=== PATIENT | female | born 1995 | race Hispanic/Latino ===

== ENCOUNTER 2020-04-12 08:10 | Observation (INO) | payer OTHER, SELFPAY ==
[2020-04-12] MEDS ORDERED: Tranexamic Acid 1,000 MG/10 ML VIAL ONE (08:43)
[2020-04-12] MEDS ORDERED: Ondansetron PF 4 MG/2 ML Vial ONE (08:43)
[2020-04-12] MEDS ORDERED: Lorazepam 2 MG/ML VIAL ONE (08:44)
[2020-04-12 09:11] LABS: #Basophils 0.1 thou/uL (0.0-0.2); #Eosinphils 0.2 thou/uL (0.0-0.7); #Monocytes 1.1 thou/uL (0.11-0.59); #Neutrophils 7.8 thou/uL (1.40-6.50); %Basophils 0.5 % (0.0-1.0); %Eosinophils 1.3 % (0.0-10.0); %Lymphocytes 24.5 % (21.0-51.0); %Monocytes 9.2 % (0.0-10.0); %Neutrophils 64.5 % (42.0-75.0); Hemoglobin 13.3 g/dL (12.0-16.0); Mean Corpuscular HGB CONC 34.7 g/dL (32.0-36.0); Mean Corpuscular Hemoglobin 31.6 pg (27.0-31.0); Mean Corpuscular Volume 91.3 fL (78.0-98.0); Mean Platelet Volume 7.3 fL (7.4-10.4); Platelet Count 349 thou/uL (130-400); RBC Distribution Width 11.6 % (11.5-14.5); Red Blood Cell (RBC) Count 4.22 mill/uL (4.20-5.40); White Blood Cell (WBC) Count 12.1 thou/uL (4.8-10.8)
[2020-04-12 09:18] LABS: PTT 26.8 sec (22.9-36.1); Prothrombin Time 12.9 sec (12.0-14.7)
[2020-04-12 09:38] LABS: ALT (SGPT) 57 U/L (8-55); AST (SGOT) 29 U/L (5-34); Albumin 4.3 g/dL (3.5-5.0); Alkaline Phosphatase 96 U/L (40-110); Anion Gap 17 mmol/L (10-20); BUN (Urea Nitrogen) 8 mg/dL (7.0-18.7); Bilirubin, Total 0.4 mg/dL (0.2-1.2); Calc. Creatinine Clearance 0 mL/min (70-130); Calcium 8.6 mg/dL (7.8-10.44); Carbon Dioxide 22 mmol/L (22-29); Chloride 100 mmol/L (98-107); Globulin 3.1 g/dL (2.4-3.5); Glucose 329 mg/dL (70-105); Potassium 4.1 mmol/L (3.5-5.1); Protein, Total 7.4 g/dL (6.0-8.3); Sodium 135 mmol/L (136-145)
[2020-04-12 09:39] LABS: BHCG - Serum Negative (NEGATIVE); Pregs Control Background? CLEAR/WHITE (CLR/WHITE); Pregs Control Bar Appear? YES (CONTROL BAR)
[2020-04-12 10:52] LABS: Acetaminophen Less than 6.0 mcg/mL (10.0-30.0); Alcohol 22 mg/dL (Less than 10); Salicylate Less than 8.0 mg/dL (15.0-30.0)
--- NOTE | 2020-04-12 10:54 | RAD ---
PORTABLE CHEST: HISTORY: Syncopal episode. COMPARISON: 10/07/2015 study. FINDINGS: Heart size and mediastinum are within normal limits. The film is of less than optimal inspiration. Slight increased markings in the bases, probably just on the basis of inspiration. No focal infiltra tive process seen. IMPRESSION: No active intrathoracic disease. POS: SUSAN
[2020-04-12 11:13] LABS: Amphetamine Not Detected (NotDetected); Barbiturates Screen Not Detected (NotDetected); Benzodiazepine Screen Not Detected (NotDetected); Cocaine Metabolite Screen Not Detected (NotDetected); Medtox Reader # READER 4; Methadone Not Detected (NotDetected); Methamphetamine Not Detected (NotDetected); Opiate Screen Not Detected (NotDetected); Oxycodone Screen Not Detected (NotDetected); Phencyclidine (PCP) Not Detected (NotDetected); THC/Cannabinoid Screen Not Detected (NotDetected); Tricyclic Screen Not Detected (NotDetected)
[2020-04-12 11:14] LABS: Medtox Control Line Valid? VALID (VALID)
[2020-04-12] MEDS ORDERED: Ondansetron ODT 4 MG TAB PO PRN (12:16)
[2020-04-12] MEDS ORDERED: Acetaminophen 325 MG TAB PO PRN (12:16)
[2020-04-12] MEDS ORDERED: Dextrose 50% Abboject 50 ML SYRINGE SLOW IVP PRN (12:24)
[2020-04-12] MEDS ORDERED: HumaLOG 300 UNITS/3 ML VIAL SC PRN (12:24)
[2020-04-12] MEDS ORDERED: Dextrose 5% in Water 1,000 ML IV PRN (12:24)
[2020-04-12] MEDS ORDERED: hydrALAZINE 20 MG/ML VIAL SLOW IVP PRN (12:32)
[2020-04-12] MEDS ORDERED: Lorazepam 2 MG/ML VIAL SLOW IVP PRN (12:32)
--- NOTE | 2020-04-12 12:55 | PDOC.HHP ---
Hospitalist HPI Nose bleed History of Present Illness: Patient is 25 year-old female with PMH of DM type I who presents to the ED with nosebleed. Patient sates she started having right-sided nosebleed starting this morning around 6:00AM. She reports hx of recurrent nosebleed, which stops with applying pressure but this time pressure or packing with papertowel did not help. Patient says she was admitted to the hospital when she was ~5-6 year-old when she was in [place], no other hospitalization for nosebleed. She says she was crying due to vaginal pain from Herpes when her nose bleed starts. She was treated for genital Herpes in Jan, 2020 and her symptoms are similar this time. ED Course: In the ED, initial vitals showed hypertension with BP: 174/125 and HR in the 140's-150's. Clot was removed from right nare by ED provider, which resulted in significant bleeding. The bleeding stopped after application of anterior pack with TXA soak. Patient remained tachycardic after she received IV fluid and Ativan. She also reported she felt weak while walking to the bathroom in the ED. She is being adm itted for further evaluation of tachycardia. Allergies/Adverse Reactions: Allergy/AdvReac Type Severity Reaction Status Date / Time No Known Allergies Allergy Verified 10/07/15 17:23 Home Medications: Medication Instructions Recorded Confirmed Type Norgestimate-Ethinyl Estradiol 1 tab PO DAILY 10/07/15 10/07/15 History [Ortho Tri-Cyclen Lo] HumaLOG [HumaLOG Vial] 5 unit SC AC #0 vial 10/11/15 Rx NPH, Human Insulin Isophane 20 unit SC BID #0 vial 10/11/15 Rx [HumuLIN N] Past History: PMHx: DM type 1 PSHx: None FHx: no family hx of bleeding or clotting disorder Social: Patient denies smoking, alcohol or drug use Hospitalist HPI ROS Constitutional: reports: chills. denies: fever Eyes: denies: vision change ENT: denies: throat pain Respiratory: denies: shortness of breath Cardiovascular: denies: chest pain Gastrointestinal: denies: nausea, vomiting, diarrhea Genitourinary: reports: dysuria. denies: frequency, hematuria Skin: reports: rash Other: Negative for Headache All other systems reviewed; all pertinent +/- noted in HPI/Subj Hospitalist Exam General Appearance: NAD, awake alert General - other findings: tearful intermittently Eye: PERRL ENT: no oropharyngeal lesions, moist mucosa ENT - other findings: rhino rocket in the right nare with no obvious bleeding Neck: supple Heart: no murmur Heart - other findings: tachycardia, regular rate Respiratory: CTAB Gastrointestinal: soft, non-tender, non-distended Extremities: no edema Skin - other findings: several scattered superficial genital ulcers present Neurological: normal sensation to touch, no weakness Musculoskeletal: normal strength Psychiatric - other findings: tearful intermittently Hospitalist Results Result Diagrams: 04/12/20 08:56 04/12/20 08:56 Lab results: Laboratory Last Values WBC 12.1 thou/uL (4.8-10.8) H 04/12/20 08:56 RBC 4.22 mill/uL (4.20-5.40) 04/12/20 08:56 Hgb 13.3 g/dL (12.0-16.0) 04/12/20 08:56 Hct 38.5 % (36.0-47.0) 04/12/20 08:56 MCV 91.3 fL (78.0-98.0) 04/12/20 08:56 MCH 31.6 pg (27.0-31.0) H 04/12/20 08:56 MCHC 34.7 g/dL (32.0-36.0) 04/12/20 08:56 RDW 11.6 % (11.5-14.5) 04/12/20 08:56 Plt Count 349 thou/uL (130-400) 04/12/20 08:56 MPV 7.3 fL (7.4-10.4) L 04/12/20 08:56 Neutrophils % 64.5 % (42.0-75.0) 04/12/20 08:56 Lymphocytes % 24.5 % (21.0-51.0) 04/12/20 08:56 Monocytes % 9.2 % (0.0-10.0) 04/12/20 08:56 Eosinophils % 1.3 % (0.0-10.0) 04/12/20 08:56 Basophils % 0.5 % (0.0-1.0) 04/12/20 08:56 Neutrophils # 7.8 thou/uL (1.40-6.50) H 04/12/20 08:56 Lymphocytes # 3.0 thou/uL (1.20-3.40) 04/12/20 08:56 Monocytes # 1.1 thou/uL (0.11-0.59) H 04/12/20 08:56 Eosinophils # 0.2 thou/uL (0.0-0.7) 04/12/20 08:56 Basophils # 0.1 thou/uL (0.0-0.2) 04/12/20 08:56 PT 12.9 sec (12.0-14.7) 04/12/20 08:56 INR 1.0 04/12/20 08:56 APTT 26.8 sec (22.9-36.1) 04/12/20 08:56 D-Dimer 0.27 *mcg/mL (0.27-0.43) 04/12/20 10:30 Sodium 135 mmol/L (136-145) L 04/12/20 08:56 Potassium 4.1 mmol/L (3.5-5.1) 04/12/20 08:56 Chloride 100 mmol/L (98-107) 04/12/20 08:56 Carbon Dioxide 22 mmol/L (22-29) 04/12/20 08:56 Anion Gap 17 mmol/L (10-20) 04/12/20 08:56 BUN 8 mg/dL (7.0-18.7) 04/12/20 08:56 Creatinine 0.70 mg/dL (0.6-1.1) 04/12/20 08:56 Estimated GFR (MDRD) Greater than 90 04/12/20 08:56 Glucose 329 mg/dL (70-105) H 04/12/20 08:56 Calcium 8.6 mg/dL (7.8-10.44) 04/12/20 08:56 Total Bilirubin 0.4 mg/dL (0.2-1.2) 04/12/20 08:56 AST 29 U/L (5-34) 04/12/20 08:56 ALT 57 U/L (8-55) H 04/12/20 08:56 Alkaline Phosphatase 96 U/L (40-110) 04/12/20 08:56 Troponin I Less than 0.010 ng/mL (< 0.028) 04/12/20 10:15 B-Natriuretic Peptide 12.1 pg/mL (0-100) 04/12/20 08:56 Serum Total Protein 7.4 g/dL (6.0-8.3) 04/12/20 08:56 Albumin 4.3 g/dL (3.5-5.0) 04/12/20 08:56 Globulin 3.1 g/dL (2.4-3.5) 04/12/20 08:56 Albumin/Globulin Ratio 1.4 g/dL (1.2-2.2) 04/12/20 08:56 TSH 3rd Generation 1.7209 uIU/mL (0.35-4.94) 04/12/20 08:56 Serum , Qual Negative (NEGATIVE) 04/12/20 08:56 Salicylates Less than 8.0 mg/dL (15.0-30.0) L 04/12/20 10:15 Urine Opiates Screen Not Detected (NotDetected) 04/12/20 10:40 Ur Oxycodone Screen Not Detected (NotDetected) 04/12/20 10:40 Urine Methadone Screen Not Detected (NotDetected) 04/12/20 10:40 Ur Propoxyphene Screen Not Detected (NotDetected) 04/12/20 10:40 Acetaminophen Less than 6.0 mcg/mL (10.0-30.0) L 04/12/20 10:15 Ur Barbiturates Screen Not Detected (NotDetected) 04/12/20 10:40 Ur Tricyclics Screen Not Detected (NotDetected) 04/12/20 10:40 Ur Phencyclidine Scrn Not Detected (NotDetected) 04/12/20 10:40 Ur Amphetamines Screen Not Detected (NotDetected) 04/12/20 10:40 U Methamphetamines Scrn Not Detected (NotDetected) 04/12/20 10:40 U Benzodiazepines Scrn Not Detected (NotDetected) 04/12/20 10:40 U Cocaine Metab Screen Not Detected (NotDetected) 04/12/20 10:40 U Cannabinoids Screen Not Detected (NotDetected) 04/12/20 10:40 Drug Screen Comment () 04/12/20 10:40 Plasma Alcohol 22 mg/dL (Less than 10) H 04/12/20 10:15 Blood Type O POSITIVE 04/12/20 10:43 Antibody Screen NEGATIVE 04/12/20 10:30 EKG Status: image reviewed by me Additional Comments: sinus tachycardia w short NV, rightward axis, Vent rate: 154 Hospitalist H&P A/P (1) Sinus tachycardia Code(s): R00.0 - TACHYCARDIA, UNSPECIFIED Status: Acute Assessment and Plan: Patient's HR in the 140's-150's on initial presentation. She remained tachycardic after receiving IV fluid for possible dehydration and Ativan for possible anxiety. D-dimer negative. TSH level normal. UDS negative, blood alcoho l level mildly elevated. EGK showed sinus tachycardia with short NV. She says her HR can get upto 150's-170's with heavy exercising, otherwise she has normal HR. Plan: -Telemetry -Echo -consult cardiology (2) Epistaxis Code(s): R04.0 - EPISTAXIS Status: Acute Assessment and Plan: Patient reports history of recurrent epistaxis. Now resolved with rhino rocket. Plan: -will keep rhino rocket in place for today -if further bleeding, will consult ENT (3) Genital herpes Code(s): A60.00 - HERPESVIRAL INFECTION OF UROGENITAL SYSTEM, UNSPECIFIED Status: Acute Assessment and Plan: Plan: -acyclovir 800 mg po TID for 2 days (4) Hyperglycemia due to type 1 diabetes mellitus Code(s): E10.65 - TYPE 1 DIABETES MELLITUS WITH HYPERGLYCEMIA Status: Chronic Assessment and Plan: BG level elevated on presentation. Plan: -cont Levemir 25 unit bid and humalog 15 unit AC -SS insulin ACHS
[2020-04-12 14:53] VITALS: BMI 38.8
[2020-04-12] MEDS: Acyclovir 800 mg Tablet PO SCH ×2 (16:14→21:42)
[2020-04-12 16:17] LABS: Hemoglobin 12.7 g/dL (12.0-16.0)
[2020-04-12] MEDS ORDERED: Metoprolol Tartrate 5 MG/5 ML VIAL IVP PRN (16:30)
[2020-04-12] MEDS: HumaLOG 300 UNITS/3 ML VIAL SC SCH (17:21)
[2020-04-12] MEDS: Benzocaine-Menthol 82.5 ML CAN TOP PRN (17:26)
[2020-04-12] MEDS ORDERED: Insulin Glargine 25 UNITS in Pre-Filled Syringe SC SCH (21:00)
[2020-04-12] MEDS: Sodium Chloride 0.9% 1,000 ML IV SCH ×2 (21:16→21:48)
[2020-04-13] MEDS: Acyclovir 800 mg Tablet PO SCH (04:57)
[2020-04-13 05:53] LABS: #Basophils 0.1 thou/uL (0.0-0.2); #Eosinphils 0.1 thou/uL (0.0-0.7); #Lymphocytes 3.4 thou/uL (1.20-3.40); #Monocytes 1.1 thou/uL (0.11-0.59); %Basophils 0.9 % (0.0-1.0); %Eosinophils 0.6 % (0.0-10.0); %Lymphocytes 31.7 % (21.0-51.0); %Monocytes 9.9 % (0.0-10.0); %Neutrophils 56.8 % (42.0-75.0); Hemoglobin 12.6 g/dL (12.0-16.0); Mean Corpuscular Volume 91.2 fL (78.0-98.0); Mean Platelet Volume 7.3 fL (7.4-10.4); Platelet Count 343 thou/uL (130-400); RBC Distribution Width 11.6 % (11.5-14.5); Red Blood Cell (RBC) Count 4.06 mill/uL (4.20-5.40); White Blood Cell (WBC) Count 10.5 thou/uL (4.8-10.8)
[2020-04-13 06:12] LABS: Anion Gap 15 mmol/L (10-20); BUN (Urea Nitrogen) 5 mg/dL (7.0-18.7); Calc. Creatinine Clearance 191 mL/min (70-130); Calcium 8.5 mg/dL (7.8-10.44); Carbon Dioxide 20 mmol/L (22-29); Chloride 101 mmol/L (98-107); Glucose 247 mg/dL (70-105); Sodium 132 mmol/L (136-145)
[2020-04-13] MEDS: HumaLOG 300 UNITS/3 ML VIAL SC SCH (08:18)
[2020-04-13] MEDS: Benzocaine-Menthol 82.5 ML CAN TOP PRN (08:24)
[2020-04-13] MEDS ORDERED: Insulin Glargine 25 UNITS in Pre-Filled Syringe SC SCH (09:00)
[2020-04-13 10:04] VITALS: BP 135/74; TEMP 98.2
== END 2020-04-13 12:02 | disposition home or self-care (01) ==
LOC: ERS 08:10 → 3SE 11:29
PROVIDERS: ADMIT Internal Medicine; ATTEND Internal Medicine
DX: R04.0 Epistaxis (principal); R00.0 Tachycardia, unspecified; A60.00 Herpesviral infection of urogenital system, unspecified; E10.65 Type 1 diabetes mellitus with hyperglycemia; Z79.4 Long term (current) use of insulin
CPT/HCPCS: 30901; 36415; 36416; 71045; 80048; 80053; 80306; 80307; 83735; 83880; 84443; 84484; 84703; 85025; 85379; 85610; 85730; 86850; 86900; 86901; 93005; 93306; 96374; G0378; J1815; J2060; J2405